=== PATIENT | female | born 1980 | race Caucasian/White ===

== ENCOUNTER 2022-06-17 20:31 | Emergency (ER) | payer OTHER ==
[2022-06-17 20:39] VITALS: BP 126/74
[2022-06-17] MEDS ORDERED: BACITRACIN ZINC OINT 1 PACKET TOP STA (20:54)
[2022-06-17] MEDS ORDERED: lidocaine 1% 20 ML MDV SUBQ ONE (20:54)
--- NOTE | 2022-06-17 21:00 | ED Physician Documentation ---
History of Present Illness - Stated complaint Stated Complaint: L FINGER LAC - Chief complaint Chief Complaint: Laceration - Additonal information Additional information: 41-year-old Female presents to the emergency department for evaluation of a left index finger laceration sustained when using a ice cream chef's knife. Tetanus is up-to-date. [id number] Review of Systems Constitutional: reports: Reviewed and negative Skin: reports: Laceration (s) PD PAST MEDICAL HISTORY - Allergies Allergies/Adverse Reactions: Allergies Allergy/AdvReac Type Severity Reaction Status Date / Time No Known Drug Allergies Allergy Verified 06/17/22 20:37 PD ED PE NORMAL - Derm Derm: Other (3 cm laceration radial side left index finger at the PIP joint. Normal flexion extension. Neurovascularly intact.) Results - Vitals Vitals: Vital Signs - 24 hr 06/17/22 20:37 Temperature 36.5 C Heart Rate 78 Respiratory 16 Rate Blood Pressure 126/74 O2 Saturation 97 Oxygen O2 Source Room air Procedures - Laceration (location) left index finger Length in cm: 3 Wound type: Linear, Into subcut fat Neurovascular status: Sensory intact, Motor intact Tendon involvement: Tendon intact Anesthesia: Lidocaine 1% Wound preparation: Irrigated copiously NS Skin layer closure: Interrupted, Size #-0 - enter number (4), Sutures - enter # (4) Other: Patient tolerated well, Dressing applied, Tetanus UTD PD MEDICAL DECISION MAKING - ED course Complexity details: considered differential, d/w patient ED course: 41-year-old female presents emergency department for evaluation of left finger index laceration sustained when using 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 Tetanus is up-to-date. Noncomplicated laceration without findings to suggest neurovascular injury or tendon injury. Wound was easily closed with 4 sutures. Routine wound care and emergent return precautions were discussed. Departure - Departure Disposition: 01 Home, Self Care Clinical Impression: Laceration of left index finger Qualifiers: Encounter type: initial encounter Damage to nail status: without damage Foreign body presence: without foreign body Qualified Code(s): S61.211A - Laceration without foreign body of left index finger without damage to nail, initial encounter Condition: Stable Record reviewed to determine appropriate education?: Yes Comments: Your suture(s) should be removed in 10 days. In 24 hours you may remove the dressing wash gently with warm soap and water, apply any antibiotic ointment and a simple bandage. Your tetanus is up-to-date. Please attempt to keep your wound clean and dry. Do not submerge it in dirty dishwater or bath water. Return to the emergency department if you have any concerns of infection such as redness, fevers milky drainage increased pain.
== END 2022-06-17 21:24 | disposition home or self-care (01) ==
LOC: ED 20:31
DX: S61.211A Laceration without foreign body of left index finger without damage to nail, initial encounter (principal); W26.0XXA Contact with knife, initial encounter; Y93.G1 Activity, food preparation and clean up
CPT/HCPCS: 12002; 99282; A9270

== ENCOUNTER 2022-07-07 11:46 | Outpatient (CLI) | payer OTHER ==
--- NOTE | 2022-07-07 14:28 | XRAY Report ---
PROCEDURE: Finger(s) LT INDICATIONS: CELLULITIS OF LEFT FINGER TECHNIQUE: AP hand, 2 views of the left second finger(s) acquired. COMPARISON: None FINDINGS: Bones: No fractures or dislocations. No suspicious bony lesions. No osseous erosions. No periosteal reaction. Soft tissues: No suspicious soft tissue calcifications. No soft tissue gas. IMPRESSION: No kristopher evidence of osteomyelitis. Please note plain-film radiographs can be insensitive to changes of osteomyelitis in the initial 15 days of the disease. If there is continued clinical concern for os teomyelitis, consider three-phase nuclear medicine bone scan or MRI for additional evaluation. Reviewed by: Radha Maldonado MD, PhD on 07/07/2022 2:27 PM PST Approved by: Radha Maldonado MD, PhD on 07/07/2022 2:27 PM PST Station ID: [id number]
== END 2022-07-07 11:47 | disposition home or self-care (01) ==
LOC: DI.S 11:46
PROVIDERS: ATTEND Orthopaedic Surgery
DX: L03.012 Cellulitis of left finger (principal)